=== PATIENT | male | born 1945 | race Caucasian/White ===

== ENCOUNTER 2020-03-05 21:00 | Emergency (ER) | payer MEDICARE, BC ==
[~2020-03-05] VITALS: Ht 177.8 cm; Wt 78.9 kg
[2020-03-05] MEDS ORDERED: SIMV20TA22 PO (21:22)
[2020-03-05] MEDS ORDERED: CEFD1CAP8 PO (21:22)
[2020-03-05] MEDS ORDERED: HYDR25TAB PO (21:22)
[2020-03-05] MEDS ORDERED: QUIN1TAB4 PO (21:22)
[2020-03-05] MEDS ORDERED: chlorproMAZINE INJ 50MG/2ML AMP (J3230) IM STA (21:55)
[2020-03-05 23:25] VITALS: BP 124/76
== END 2020-03-06 00:02 | disposition home or self-care (01) ==
LOC: M ED 21:00
DX: R06.6 Hiccough (principal); I10 Essential (primary) hypertension; Z79.2 Long term (current) use of antibiotics; Z79.899 Other long term (current) drug therapy
CPT/HCPCS: 96372; 99283; J3230